=== PATIENT | female | born 1980 | race Caucasian/White ===

== ENCOUNTER 2023-12-18 15:53 | Emergency (ER) | payer BC ==
--- OUTSIDE RECORDS SUMMARY | 2023-12-18 15:56 | XMS REPORT | Continuity of Care Document ---
Author Name Unknown Address [address] [facility]. [address] [place] [address] [facility] thconnect Address [address] [facility] [address] [place] [address] Care Team Providers Care Front Worker Name Role Phone MAGDY COLLINS Attending Clinician Unavailable Jorge Glass Attending Clinician Unavailable Physician, No Primary or Family Admitting Clinic wing Unavailable Payers Payer Name Policy Type Policy Number Effective Date Expirati on Date Source Encounters Start Date/Time End Date/Time Encounter Type Admission Type Attending Clinicians Care Facility Care Department Encounter ID Source 2022-07-09 08:00:00 2022-07-09 08:00:00 Outpatient MAGDY GILMAN [id number] [facility] 2019-09-28 12:00:00 2019-09-28 12:00:00 Outpatient Jorge Sheriff [id number] [facility]
[2023-12-18] MEDS ORDERED: ASPIRIN 81 MG CHEWABLE TABLET ONE (17:06)
[2023-12-18 17:10] LABS: Absolute Basophils 0.1 K/uL (0-0.5); Absolute Eosinophils 0.2 K/uL (0-0.5); Absolute Lymphocytes (CBC) 2.9 K/uL (0.7-4.9); Absolute Monocytes 0.5 K/uL (0.1-1.3); Basophils % 1.2 % (0-1.3); Hematocrit 44.3 % (36.0-45.0); Hemoglobin 14.6 g/dL (12.0-15.0); Lymphocytes % 33.1 % (15.3-44.8); MCH 28.9 pg (27.0-35.0); MCV 87.3 fL (80-100); MPV 7.4 fL (7.6-11.3); Monocytes % 5.6 % (3.3-12.3); Neutrophils % 58.1 % (41.7-73.7); Platelets 398 thou/uL (152-406); RBC Red Blood Cell Count 5.07 M/uL (3.86-4.86); Red Cell Distribution Width 14.3 % (12.1-15.2)
[2023-12-18 17:18] LABS: ALT/SGPT 22 U/L (13-56); AST/SGOT 11 U/L (15-37); Albumin 3.4 g/dL (3.4-5.0); Albumin/Globulin Ratio 0.9 (1.1-1.8); Alkaline Phosphatase 72 U/L (45-117); Anion Gap 10.6 mEq/L (5.0-15.0); BUN Blood Urea Nitrogen 7 mg/dL (7-18); Bicarbonate 25 mEq/L (21-32); Bilirubin Total 0.3 mg/dL (0.2-1.0); Glomerular Filtration Rate 82 ml/min (=/>90); Glucose Level 94 mg/dL (74-106); Magnesium 2.1 mg/dL (1.6-2.4); Potassium 3.6 mEq/L (3.5-5.1); Protein, Total 7.4 g/dL (6.4-8.2); Sodium Level 136 mEq/L (136-145)
[2023-12-18 17:23] LABS: Bilirubin Direct < 0.1 mg/dL (0-0.2); Bilirubin Indirect, Calculated ND mg/dL (0.2-0.8); Troponin High Sensitivity < 3.0 pg/mL (<58.9)
--- NOTE | 2023-12-18 18:11 | RAD REPORT ---
EXAM DESCRIPTION: Maxine Single View12/18/2023 5:52 pm CLINICAL HISTORY: CHEST PAIN COMPARISON: No comparisons TECHNIQUE: Portable AP view of the chest. FINDINGS: Decreased inspiratory effort limits evaluation The lungs are clear. No pneumothorax or ef fusion. The cardiomediastinal contours are unremarkable. IMPRESSION: No acute cardiopulmonary process.
--- NOTE | 2023-12-18 18:27 | ER ---
Nurse's Notes [facility] Name: Jo Varela Age: 43 yrs Sex: Female : 1980 Arrival Date: 12/18/2023 Time: 15:53 Bed 5 Private MD: Diagnosis: Chest pain, unspecified Presentation: 12/17 16:16 Chief complaint: Patient states: chest pain since yesterday and worse today , radiates iw to back. Coronavirus screen: At this time, the client does not indicate any symptoms associated with coronavirus-19. Ebola Screen: Patient denies travel to an Ebola-affected area in the 21 days before illness onset. No symptoms or risks identified at this time. Initial Sepsis Screen: Does the patient meet any 2 criteria? No. Patient's initial sepsis screen is negative. Does the patient have a suspected source of infection? No. Patient's initial sepsis screen is negative. Risk Assessment: Do you want to hurt yourself or someone else? Patient reports no desire to harm self or others. Onset of symptoms was December 18, 2023. 16:16 Method Of Arrival: Ambulatory iw 16:16 Acuity: VIANCA 3 iw Triage Assessment: 16:30 General: Appears in no apparent distress. comfortable, obese, Behavior is cooperative, bp appropriate for age, anxious. Pain: Complains of pain in back and chest. EENT: No deficits noted. Cardiovascular: Reports chest pain. Respiratory: Denies shortness of breath. Historical: - Allergies: 16:17 anti inflammatories; iw - Home Meds: 16:17 None [Active]; iw - PMHx: 16:17 Hashimotos; iw - PSHx: 16:17 section; Cholecystectomy; iw - Immunization history:: Adult Immunizations. - Infectious Disease History:: Denies. - Social history:: Smoking status: Patient reports the use of cigarette tobacco products. Screenin:37 [facility] ED Fall Risk Assessment (Adult) History of falling in the last 3 months, bp including since admission No falls in past 3 months (0 pts). Abuse screen: Denies threats or abuse. Denies injuries from another. Nutritional screening: No deficits noted. Tuberculosis screening: No symptoms or risk factors identified. Assessment: 17:20 Reassessment: Gait steady to room #5. ll1 18:37 Reassessment: Patient appears in no apparent distress at this time. Patient is alert, bp oriented x 3, equal unlabored respirations, skin warm/dry/pink. Vital Signs: 16:16 BP 162 / 95; Pulse 72; Resp 16; Temp 98.1; Pulse Ox 97% on R/A; Weight 113.4 kg; Height iw 5 ft. 2 in. ; Pain 6/10; 18:37 BP 157 / 91; Pulse 75; Resp 16; Temp 98.1; Pulse Ox 97% ; bp 16:16 Body Mass Index 45.73 (113.40 kg, 157.48 cm) iw 16:16 Pain Scale: Adult iw ED Course: 15:55 Patient arrived in ED. mr 16:01 Sarwat Thurston MD is Attending Physician. rt 16:17 Triage completed. iw 16:19 Arm band placed on. iw 16:23 EKG done, by structural engineering technician. reviewed by Sarwat Thurston MD. jr12 17:06 Basic Metabolic Panel Sent. jr12 17:06 CBC with Diff Sent. jr12 17:06 LFT's Sent. jr12 17:06 Magnesium Sent. jr12 17:06 Troponin HS Sent. jr12 17:17 Finesse Lacy, RN is Primary Nurse. bp 17:17 Patient placed in an exam room, on a stretcher. ll1 17:54 XRAY Chest (1 view) In Process Unspecified. EDMS 18:26 Lavelle Kinney MD is Referral Physician. rt 18:37 Patient has correct armband on for positive identification. Provided Education on: N/A. bp Client placed on continuous cardiac and pulse oximetry monitoring. NIBP monitoring applied. service rig operator on. Pulse ox on. 18:37 No provider procedures requiring assistance completed. Patient did not have IV access bp during this emergency room visit. O2 via ROOM AIR. 18:39 Troponin High Sensitivity Sent. bp Administered Medications: 17:09 Drug: Aspirin PO Chewable Tablet 324 mg PO once; 81 mg tablets x 4 Route: PO; nj1 18:39 Follow up: Response: No adverse reaction bp Medication: 18:37 VIS not applicable for this client. bp Outcome: 18:26 Discharge ordered by . rt 18:37 Discharged to home ambulatory, bp 18:37 Condition: stable 18:37 Discharge instructions given to patient, Instructed on discharge instructions, follow up and referral plans. Demonstrated understanding of instructions, follow-up care, 18:39 Patient left the ED. bp Signatures: Dispatcher [employer] EDMS Dai Madrigal, Reg Reg mr Jenise Hickey, RN Finesse Lopez RN RN bp Lewis, Lynsay, RN RN ll1 Sarwat Thurston MD MD rt Nela Pelletier RN RN nj1 [place], [place] [id number]
--- NOTE | 2023-12-18 18:27 | EDPHYS ---
Physician Documentation [facility] Name: Jo Varela Age: 43 yrs Sex: Female : 1980 Arrival Date: 12/18/2023 Time: 15:53 Bed 5 Private MD: ED Physician Sarwat Thurston Historical: - Allergies: 12/17 16:17 anti inflammatories; iw - Home Meds: 16:17 None [Active]; iw - PMHx: 16:17 Hashimotos; iw - PSHx: 16:17 section; Cholecystectomy; iw - Immunization history:: Adult Immunizations. - Infectious Disease History:: Denies. - Social history:: Smoking status: Patient reports the use of cigarette tobacco products. Vital Signs: 16:16 BP 162 / 95; Pulse 72; Resp 16; Temp 98.1; Pulse Ox 97% on R/A; Weight 113.4 kg; Height iw 5 ft. 2 in. ; Pain 6/10; 18:37 BP 157 / 91; Pulse 75; Resp 16; Temp 98.1; Pulse Ox 97% ; bp 16:16 Body Mass Index 45.73 (113.40 kg, 157.48 cm) iw 16:16 Pain Scale: Adult iw MDM: 16:15 Patient medically screened. rt 12/17 16:23 Order name: Basic Metabolic Panel; Complete Time: 17:27 rt 12/17 16:23 Order name: CBC with Diff; Complete Time: 17:27 rt 12/17 16:23 Order name: LFT's; Complete Time: 17:27 rt 12/17 16:23 Order name: Magnesium; Complete Time: 17:27 rt 12/17 16:23 Order name: Troponin HS; Complete Time: 17:27 rt 12/17 18:25 Order name: Troponin High Sensitivity rt 12/17 16:23 Order name: XRAY Chest (1 view); Complete Time: 18:16 rt 12/17 16:23 Order name: Cardiac monitoring; Complete Time: 17:26 rt 12/17 16:23 Order name: EKG - Nurse/Tech; Complete Time: 16:24 rt 12/17 16:23 Order name: IV Saline Lock; Complete Time: 17:20 rt 12/17 16:23 Order name: Labs collected and sent; Complete Time: 17:20 rt 12/17 16:23 Order name: O2 Per Protocol; Complete Time: 17:20 rt 12/17 16:23 Order name: O2 Sat Monitoring; Complete Time: 17:20 rt Administered Medications: 17:09 Drug: Aspirin PO Chewable Tablet 324 mg PO once; 81 mg tablets x 4 Route: PO; nj1 18:39 Follow up: Response: No adverse reaction bp Disposition Summary: 12/18/23 18:26 Discharge Ordered Notes: Location: Home rt Problem: new rt Symptoms: have improved rt Condition: Stable rt Diagnosis - Chest pain, unspecified rt Followup: rt - With: Lavelle Kinney MD - When: 2 - 3 days - Reason: Discharge Instructions: - Discharge Summary Sheet rt - Nonspecific Chest Pain, Adult rt Forms: - Medication Reconciliation Form rt - Antibiotic Education rt - Prescription Opioid Use rt - Patient Portal Instructions rt - Leadership Thank You Letter rt Signatures: Dispatcher [employer] EDJenise Ortiz, FELICITA MIMS iw Sarwat Thurston MD MD rt Nela Pelletier RN RN nj1 Finesse Lacy RN bp Corrections: (The following items were deleted from the chart) 16:24 16:23 BASIC METABOLIC PANEL+C.LAB.BRZ ordered. EDMS EDMS 16:24 16:23 CBC+H.LAB.BRZ ordered. EDMS EDMS 16:24 16:23 HEPATIC FUNCTION+C.LAB.BRZ ordered. EDMS EDMS 16:24 16:23 MAGNESIUM+C.LAB.BRZ ordered. EDMS EDMS 16:24 16:23 Troponin High Sensitivity+C.LAB.BRZ ordered. EDMS EDMS 16:24 16:24 Chest Single View+RAD.RAD.BRZ ordered. EDMS EDMS 18:26 18:26 Troponin High Sensitivity+C.LAB.BRZ ordered. EDMS EDMS
[2023-12-18 19:55] VITALS: BP 157/91; TEMP 98.1; O2SAT 97
--- NOTE | 2023-12-22 13:09 | EKG ---
Test Date: 2023-12-18 Test Time: 16:20:42 Garage Mechanic: DENISE MEASUREMENT RESULTS: Intervals: Rate: 79 SC: 154 QRSD: 84 QT: 374 QTc: 428 [place]: P: 50 SC: 154 QRS: 74 T: 45 INTERPRETIVE STATEMENTS: Normal sinus rhythm Normal ECG No previous ECG available for comparison Electronically Signed On 12-22-23 12:59:02 CDT by Lavelle Kinney
== END 2023-12-18 18:39 | disposition home or self-care (01) ==
LOC: ER 15:53
DX: R07.9 Chest pain, unspecified (principal); E06.3 Autoimmune thyroiditis; F17.210 Nicotine dependence, cigarettes, uncomplicated
CPT/HCPCS: 36415; 71045; 80048; 80076; 83735; 84484; 85025; 93005